=== PATIENT | male | born 1955 | race Caucasian/White ===

== ENCOUNTER → 2021-01-06 | Outpatient (CLI) | payer BC ==
--- NOTE | 2021-01-06 14:29 | Diagnostic Imaging Report ---
INDICATION: Right shoulder pain. COMPARISON: None. FINDINGS: Three views of the right shoulder were obtained. There is no fracture, dislocation, or other acute bony abnormality identified. The soft tissues appear unremarkable. No radiopaque foreign bodies identified. The visualized portions of the right lung are clear. IMPRESSION: No acute fractures or dislocations of the right shoulder. Dictated by: Dictated on workstation # [id number]
== END ==
LOC: RAD FS 14:06
PROVIDERS: ATTEND Nurse Practitioner
DX: M25.511 Pain in right shoulder (principal)
CPT/HCPCS: 73030

== ENCOUNTER → 2021-02-13 | Outpatient (CLI) | payer SELFPAY ==
--- NOTE | 2021-02-13 17:28 | Diagnostic Imaging Report ---
INDICATION: Hyperglycemia. TECHNIQUE: CT calcium scoring study performed without IV contrast with images of the cardiac silhouette and calculation of calcium score. Dose reduction protocol was used. FINDINGS: Visualized portion of the mediastinum shows no adenopathy. There is no aortic aneurysm. Visualized portions of the lung car were clear. There was no significant coronary calcium identified. Coronary calcium score was 0. IMPRESSION: Negative study. Coronary calcium score is 0. Dictated by: Dictated on workstation # [id number]
== END ==
LOC: RAD FS 15:16
PROVIDERS: ATTEND Family Medicine
DX: Z00.00 Encounter for general adult medical examination without abnormal findings (principal); E78.1 Pure hyperglyceridemia
CPT/HCPCS: 75571